=== PATIENT | male | born 1985 | race Caucasian/White ===

== ENCOUNTER 2016-06-01 12:00 | Emergency (ER) | payer SELFPAY ==
[~2016-06-01] VITALS: Ht 175.3 cm; Wt 77.3 kg
[2016-06-01 12:05] VITALS: BP 133/75; PULSE 88; RESP 16; TEMP 98.2; O2SAT 99
--- NOTE | 2016-06-01 12:12 | PD ---
HPI Chief Complaint: R sided facial mass Time Seen by Provider: 12:11 Travel History International Travel<30 days: No Contact w/Intl Traveler<30days: No Traveled to known affect area: No History of Present Illness HPI 30 year old male presents to the ED for evaluation of a cystic lesion inferior to his left maxillary sinus. Pt states it has been there for a long time, but it has been getting bigger. It does not hurt. He has had no injury. No fever or chills. No other symptoms to report. History Past Medical Histgory Medical History: Denies Significant Hx Social History Alcohol Use: No Tobacco Use: No Review of Systems Except as stated in HPI: all other systems reviewed are Neg Physical Exam Narrative GENERAL: Well nourished male pt in no acute distress. SKIN: Warm and dry. No erythema or edema HEAD: Normocephalic. Not visible, but palpable non specific mass like lesion inferior to the maxillary sinus. it is not fluctuant. it is non-mobile. EYES: No scleral icterus. No injection or drainage. NECK: Supple, trachea midline. No JVD or lymphadenopathy. CARDIOVASCULAR: Regular rate and rhythm without murmurs, gallops, or rubs. RESPIRATORY: Breath sounds equal bilaterally. No accessory muscle use. GASTROINTESTINAL: Abdomen soft, non-tender, nondistended. MUSCULOSKELETAL: No cyanosis, or edema. BACK: Nontender without obvious deformity. No CVA tenderness. Data Data Last Documented VS Vital Signs Date Time Temp Pulse Resp B/P Pulse Ox O2 Delivery O2 Flow Rate FiO2 06/01/16 12:05 98.2 88 16 133/[address] [facility] Medical Screen Exam Complete: Yes Emergency Medical Condition: No Differential Diagnosis Non specific mass L cheek Narrative Course 30 year old male presents to the ED for evaluation of a non specific mass inferior to his L maxillary sinus. It is non mobile; non fluctuant. No erythema or induration. I have encouraged the patient seek primary care evaluation and cranial facial evaluation. If things worsen he is to return to emergency department but at this time there are no urgent or emergent need for medical intervention identified. A medical screening exam was performed: At the time of evaluation the presenting medical condition was determined not to be of an emergent nature. The patient was given the option of receiving additional care, but declined. Patient was given options for additional community resources from which to obtain care. The Patient Has Been advised to seek medical attention for their presenting complaint. The patient has been advised to return to the ER at any time if an emergent condition develops. Primary Impression: Encounter for medical screening examination Condition: Stable Alice Norton Jun 01, 2016 12:12
== END 2016-06-01 12:20 | disposition left against medical advice (07) ==
LOC: NED 12:00
DX: R22.0 Localized swelling, mass and lump, head (principal)
CPT/HCPCS: 99281